=== PATIENT | female | born 1990 | race Caucasian/White ===

== ENCOUNTER 2017-03-03 01:29 | Emergency (ER) | payer OTHER ==
[~2017-03-03] VITALS: Ht 157.5 cm; Wt 54.4 kg
[~2017-03-03 01:29] MED LIST: ARIP10TA9 PO; ARIP20TA4 PO; DIVA250T4 PO
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
[2017-03-03] MEDS ORDERED: HYDROCODONE/APAP 10/325MG 1 EA TABLET ONE ×3 (01:54→04:13)
[2017-03-03] MEDS ORDERED: ONDANSETRON 4 MG TAB.RAPDIS ONE (01:54)
[2017-03-03] MEDS ORDERED: HYDROCODONE/APAP 10/325MG 1 EA TABLET PO ONE ×2 (02:00→04:00)
[2017-03-03] MEDS ORDERED: ONDANSETRON 4 MG TAB.RAPDIS SL ONE (02:00)
--- NOTE | 2017-03-03 04:14 | NUR ---
WASTED 1 TABLET OF NORCO 10/325. PATIENT ACCIDENTALLY SPIT OUT TABLET. WASTED WITH TIMI VELEZ.
[2017-03-03 04:20] VITALS: BP 129/88
== END 2017-03-03 04:21 | disposition home or self-care (01) ==
LOC: ER 01:29
DX: S80.02XA Contusion of left knee, initial encounter (principal); S70.11XA Contusion of right thigh, initial encounter; V89.2XXA Person injured in unspecified motor-vehicle accident, traffic, initial encounter; Y93.89 Activity, other specified; Y92.410 Unspecified street and highway as the place of occurrence of the external cause; Y99.8 Other external cause status
CPT/HCPCS: 29505; 73551; 73564; 99284; A4606; Q0162; Z7610; 73552